=== PATIENT | female | born 1945 ===

== ENCOUNTER 2017-07-24 13:32 | Outpatient (RCR) | payer OTHER | END 2017-07-29 | disposition home or self-care (01) | LOC: PTY 13:32 | DX: M25.562 Pain in left knee (principal); G89.29 Other chronic pain ==

== ENCOUNTER 2017-08-09 13:45 | Outpatient (RCR) | payer OTHER | END 2017-08-29 | disposition home or self-care (01) | LOC: PTY 13:45 | DX: M25.562 Pain in left knee (principal); G89.29 Other chronic pain ==